=== PATIENT | female | born 1985 | race Caucasian/White ===

== ENCOUNTER → 2021-04-23 14:08 | Outpatient (REF) | payer BC, SELFPAY | LOC: ANHLAB 14:08 | PROVIDERS: PCP Physician Assistant; Visit Provider Nurse Practitioner | DX: L02.91 Cutaneous abscess, unspecified (principal) | CPT/HCPCS: 87070; 87075; 87076; 87205 ==

== ENCOUNTER → 2021-07-01 15:02 | Outpatient (REF) | payer BC, SELFPAY | LOC: ANHLAB 15:02 | PROVIDERS: PCP Physician Assistant; Visit Provider Nurse Practitioner | DX: L72.0 Epidermal cyst (principal) | CPT/HCPCS: 88304 ==

== ENCOUNTER 2021-10-19 17:43 | Emergency (ER) | payer BC, SELFPAY ==
[2021-10-19 17:54] VITALS: BP 123/89; PULSE 124; RESP 18; TEMP 37.5; O2SAT 100
--- NOTE | 2021-10-19 17:56 | ED.URI ---
HPI - URI/Sore Throat General Chief Complaint: Upper Respiratory Infection Stated Complaint: Sinus Time Seen by Provider: 10/19/21 17:56 Source: patient Mode of arrival: ambulatory Limitations: no limitations History of Present Illness HPI Narrative: 36-year-old female presents with complaint of postnasal drainage, sore throat, nasal congestion and sinus pain for 3 days. Is taking Zyrtec and Sudafed. Denies fever chills. Reports that her mother told her she may have a sinus infection. Denies cough. No shortness of breath or chest pain. No nausea vomiting diarrhea. All systems reviewed and negative except as noted above. Related Data Home Medications Medication Instructions Recorded Confirmed norethindrone 0.4 mg-ethinyl 1 tablet PO DAILY 02/26/21 estradiol 35 mcg tablet alprazolam 1 cap PO DIRECTED 10/19/21 10/19/21 Allergies Allergy/AdvReac Type Severity Reaction Status Date / Time No Known Allergies Allergy Verified 10/19/21 17:46 Review of Systems Review of Systems: CONSTITUTIONAL: Denies fever, chills, or sweats. EYES: Denies visual changes, redness, or discharge. ENT: Reports rhinorrhea, congestion, sore throat. Denies otalgia. CARDIOVASCULAR: Denies chest pain, palpitations, or edema. RESPIRATORY: Denies cough or dyspnea. GASTROINTESTINAL: Denies abdominal pain, nausea, vomiting, or diarrhea. GENITOURINARY: Denies dysuria or hematuria. SKIN: Denies rash or itching. MUSCULOSKELETAL: Denies back pain, joint pain, or myalgia. NEUROLOGIC: Denies headache, numbness, or weakness. PSYCHIATRIC: Denies anxiety or depression. All other systems reviewed are negative, except as documented in HPI. [facility] Past Medical History Medical History Anxiety Surgical History Surgical History History of removal of cyst Neck 2013 Family History Family History Father Hypertension Social History Social History Smoking status: Never smoker Alcohol intake: current Substance use: never Comments At time of signature, agree with nursing past medical, surgical, social and family history. There is no relevant family history pertinent to the presenting complaint. Exam Narrative: GENERAL: This is a well-nourished, well-developed patient, in no apparent distress. HEAD: normocephalic, atraumatic. EYES: PERRL. Sclera clear/white. Vision is grossly intact. EARS: External ears normal, auditory canals clear and without drainage, TMs normal without perforation. Hearing grossly intact. NOSE: External nose normal with clear nasal drainage. No erythema or swelling to nares. THROAT: Mucous membranes moist, clear post nasal drainage. NECK: Neck supple, non-tender without lymphadenopathy, masses or thyromegaly. CARDIOVASCULAR: Regular rate and rhythm without murmurs, gallops, or rubs. RESPIRATORY: Clear to auscultation. Breath sounds equal bilaterally. No wheezes, rales, or rhonchi. SKIN: warm, Dry, intact with no suspicious lesions or rash, good texture and turgor. NEURO: awake, alert, and oriented to person, place and time. There were no obvious focal neurologic abnormalities. EXTREMITIES: Normal range of motion to all extremities. Course Course Level of Care: Express Care Visit Vital Signs Vital signs: Vital Signs Temperature 37.5 C 10/19/21 17:54 Pulse Rate 124 H 10/19/21 17:54 Respiratory Rate 18 10/19/21 17:54 Blood Pressure 123/89 10/19/21 17:54 Pulse Oximetry 100 10/19/21 17:54 Temperature 37.5 C 10/19/21 17:54 Pulse Rate 124 H 10/19/21 17:54 Respiratory Rate 18 10/19/21 17:54 Blood Pressure 123/89 10/19/21 17:54 Pulse Oximetry 100 10/19/21 17:54 Reviewed Heart rate elevated due to Sudafed use. MDM - URI/Sore Throat MDM Narrative
== END 2021-10-19 18:27 | disposition home or self-care (01) ==
PROVIDERS: Emergency Provider Nurse Practitioner Family; PCP Physician Assistant
DX: J01.90 Acute sinusitis, unspecified (principal); Z20.822 Contact with and (suspected) exposure to COVID-19; F41.9 Anxiety disorder, unspecified
CPT/HCPCS: 87426; 99213; C9803; G0463